=== PATIENT | female | born 1970 | race Caucasian/White ===

== ENCOUNTER 2023-03-11 15:32 | Emergency (ER) | payer OTHER ==
[~2023-03-11] VITALS: Ht 172.7 cm; Wt 85.6 kg
[2023-03-11] MEDS ORDERED: ibuprofen tablet 400 MG TABLET PO ONE ×2 (15:55→16:05)
[2023-03-11] MEDS ORDERED: ibuprofen 200mg tablet PO ONE (15:55)
[2023-03-11] MEDS ORDERED: ondansetron/PF 4mg/2ml inj IV ONE (16:05)
[2023-03-11] MEDS ORDERED: CefTRIAXone/D5W-Rocephin 1gm 50 ML IV ONE (16:05)
[2023-03-11] MEDS ORDERED: normal saline 1000ML IV soln IVB ONE (16:05)
[2023-03-11] MEDS ORDERED: normal saline 1000ml 1,000 ML IV ONE (16:05)
--- NOTE | 2023-03-11 16:11 | NUR ---
PT STATED THAT SHE TOOK 2 MOTRIN AT 1430. RN NOTIFIED LUNA AND PER LUNA RN SHOULD ONLY ADMIN 400MG PO.
[2023-03-11 16:38] LABS: BASOPHILS # (AUTO) 0.1 X10'3 (0-0.2); BASOPHILS % (AUTO) 0.8 % (0-1); EOSINOPHILS % (AUTO) 0.4 % (0-6); HEMATOCRIT 34.4 % (35.0-45.0); HEMOGLOBIN 11.4 g/dl (12.0-16.0); LYMPHOCYTES # (AUTO) 0.3 X10'3 (1.1-4.8); LYMPHOCYTES % (AUTO) 3.9 % (21-51); MEAN CORPUSCULAR HEMOGLOBIN 29.6 PG (27.0-31.0); MEAN CORPUSCULAR VOLUME 89.7 FL (78-98); MEAN PLATELET VOLUME 8.4 FL (7.4-10.4); MONOCYTES # (AUTO) 0.1 X10'3 (0-0.9); MONOCYTES % (AUTO) 1.4 % (2-12); NEUTROPHILS # (AUTO) 7.4 X10'3 (1.8-7.7); NEUTROPHILS % (AUTO) 93.5 % (42-75); PLATELET COUNT 145 X10'3 (140-440); RED BLOOD COUNT 3.84 X10'6 (4.20-5.60); RED CELL DISTRIBUTION WIDTH 14.3 % (11.5-14.5); WHITE BLOOD COUNT 7.9 X10'3 (4.5-11.0)
[2023-03-11 16:52] LABS: ALANINE AMINOTRANSFERASE 16 U/L (12-78); ALBUMIN 3.2 G/DL (3.4-5.0); ALBUMIN/GLOBULIN RATIO 0.8 (1.1-1.5); ALKALINE PHOSPHATASE 94 IU/L (46-116); ANION GAP 13 (8-16); ASPARTATE AMINO TRANSFERASE 21 U/L (10-37); BILIRUBIN,TOTAL 0.6 MG/DL (0.1-1.0); BLOOD UREA NITROGEN 30 MG/DL (7-18); BUN/CREATININE RATIO 20.1 (10.0-20.0); CHLORIDE 100 MMOL/L (99-107); CREATININE 1.49 MG/DL (0.40-0.90); GLUCOSE 90 MG/DL (70-104); LIPASE 124 U/L (73-393); SODIUM 137 MMOL/L (135-145); TOTAL CARBON DIOXIDE 24.1 MMOL/L (24-32); eGFR 36 ML/MIN
[2023-03-11 16:52] LABS: CLARITY,URINE CLOUDY (Clear); COLOR,URINE YELLOW (Yellow); GLUCOSE, URINE NEGATIVE (Neg); KETONES,URINE TRACE mg/dl (Neg); LEUKOCYTE ESTERASE ,URINE MODERATE (Neg); NITRITES, URINE POSITIVE (Neg); OCCULT BLOOD,URINE LARGE (Neg); PH,URINE 5.5 (4.8-8.0); PROTEIN,URINE 100 mg/dl (Neg)
[2023-03-11 16:59] LABS: CALCIUM 8.8 MG/DL (8.5-10.1)
[2023-03-11 17:00] LABS: ETHANOL < 0.010 GM/DL (0.0-0.010)
[2023-03-11 17:06] LABS: UA COLLECTION TYPE CLN CATCH MIDSTREAM
[2023-03-11 17:07] LABS: WBC,URINE TNTC /HPF (0-4)
[2023-03-11 17:12] LABS: BACTERIA,URINE 2+ /HPF (Neg)
[2023-03-11 17:13] LABS: SQUAMOUS EPITHELIAL CELL,UR FEW /LPF (FEW)
[2023-03-11 17:14] LABS: URINE AMPHETAMINE SCREEN NEGATIVE (Neg); URINE BARBITUATE SCREEN NEGATIVE (Neg); URINE BENZODIAZEPINES SCREEN NEGATIVE (Neg); URINE CANNABINOID SCREEN POSITIVE (Neg); URINE COCAINE SCREEN NEGATIVE (Neg); URINE METHADONE SCREEN NEGATIVE (Neg); URINE OPIATE SCREEN NEGATIVE (Neg); URINE PHENCYCLIDINE SCREEN NEGATIVE (Neg); WBC CLUMPS,URINE MANY /HPF (NEGATIVE)
[2023-03-11] MEDS ORDERED: IBUP-860 PO (17:41)
[2023-03-11] MEDS ORDERED: PHEN-824 PO (17:41)
[2023-03-11] MEDS ORDERED: CEFD300C21 PO (17:41)
[2023-03-11 18:35] VITALS: BP 100/50
== END 2023-03-11 18:40 | disposition home or self-care (01) ==
LOC: ER 15:34
DX: N12 Tubulo-interstitial nephritis, not specified as acute or chronic (principal); M54.50 Low back pain, unspecified; R30.0 Dysuria; R35.0 Frequency of micturition; R10.30 Lower abdominal pain, unspecified; R39.15 Urgency of urination; E03.9 Hypothyroidism, unspecified; F12.90 Cannabis use, unspecified, uncomplicated; Z98.84 Bariatric surgery status; Z88.8 Allergy status to other drugs, medicaments and biological substances; Z72.89 Other problems related to lifestyle; Z87.891 Personal history of nicotine dependence; Z85.850 Personal history of malignant neoplasm of thyroid; Z88.6 Allergy status to analgesic agent
CPT/HCPCS: 36415; 80053; 80305; 80320; 81001; 83605; 83690; 83735; 84145; 85025; 87040; 87077; 87088; 87186; 96365; 96375; 99285; J0696; J2405; J7030; 96361